=== PATIENT | female | born 1955 | race Caucasian/White ===

== ENCOUNTER 2018-07-12 18:34 | Emergency (ER) | payer OTHER ==
[~2018-07-12] VITALS: Ht 162.6 cm; Wt 51.8 kg
[2018-07-12] MEDS ORDERED: [UNRECOGNIZED DRUG - CODE] IV (18:52)
[2018-07-12] MEDS ORDERED: [UNRECOGNIZED DRUG - CODE] TOP (18:53)
[2018-07-12] MEDS ORDERED: XOLA150I SC ×2 (18:53)
[2018-07-12] MEDS ORDERED: IPRATROPIUM 0.5MG/ALBUTEROL 2.5MG INH SOL UD 3ML (DUONEB)(J7620) NEB ONE (19:30)
[2018-07-12] MEDS ORDERED: predniSONE 20 MG TAB PO ONE (21:30)
[2018-07-12] MEDS ORDERED: LORATADINE 10 MG TAB PO ONE (21:30)
--- NOTE | 2018-07-12 22:18 | REP ---
Clinical: Cough and fever. Technique: PA and lateral. Findings: Mediastinum and cardiac silhouette are normal. The lung mercado demonstrate coarsened interstitial markings and prominent increased lower lobe markings suggesting the possibility of diffuse bronchitis and possible basilar atelectasis. 1.3 cm mass in the right upper lobe best identified on PA radiograph. No pleural effusion. Two small clips likely within the right breast. Skeletal structures intact. Impression: 1. Increased coarsened markings suggest the possibility of bronchitis with minimal basilar atelectasis. 2. 13 mm mass in the right upper lobe. No prior examinations are available for comparison. Chest CT with contrast is recommended for further investigation. Electronically Signed by Khari Bacon MD 07/12/2018 10:09 P
[2018-07-12 22:21] LABS: INFLUENZA A AMPLIFICATION NEGATIVE (NEGATIVE); INFLUENZA B AMPLIFICATION NEGATIVE (NEGATIVE)
[2018-07-12] MEDS ORDERED: ALBUTEROL SULFATE 2.5 MG/0.5 ML INH NEB SOLN NEB ONE (22:30)
[2018-07-12 22:34] VITALS: BP 108/50
[2018-07-12] MEDS ORDERED: AUGM875T28 PO (22:41)
[2018-07-12] MEDS ORDERED: PRED20TA PO (22:41)
[2018-07-12] MEDS ORDERED: CLAR1TAB2 PO (22:41)
[2018-07-12] MEDS ORDERED: VENTAER INH (22:42)
[2018-07-12] MEDS ORDERED: ACETAMINOPHEN TAB 650MG DOSE (2X325MG) PO ONE (22:45)
[2018-07-12] MEDS ORDERED: AUGMENTIN 875 MG TAB PO ONE (22:45)
--- NOTE | 2018-07-13 11:43 | ED PDOC ---
Post-Departure [facility] faxed formal report of cxr for fu Jesús Castillo MD Jul 13, 2018 11:43
== END 2018-07-12 22:55 | disposition home or self-care (01) ==
LOC: M ED 18:34
DX: J20.9 Acute bronchitis, unspecified (principal); L50.8 Other urticaria; R91.8 Other nonspecific abnormal finding of lung field; Z79.899 Other long term (current) drug therapy